=== PATIENT | male | born 1980 | race Caucasian/White ===

== ENCOUNTER 2021-03-20 11:32 | Emergency (ER) | payer BC, OTHER ==
[2021-03-20 11:51] VITALS: BMI 31.2
[2021-03-20] MEDS ORDERED: CASIRIVIMAB/IMDEVIMAB 10 ML in SODIUM CHLORIDE 100 ML IVPB ONE (12:13)
[2021-03-20 14:48] VITALS: BP 148/96; PULSE 81; TEMP 98.8
== END 2021-03-20 14:51 | disposition home or self-care (01) ==
LOC: JCOVINFU 11:32
DX: U07.1 COVID-19 (principal)
CPT/HCPCS: 71046-TC-FY; 99284-25; Q0240